=== PATIENT | male | born 1980 | race Caucasian/White ===

== ENCOUNTER 2022-07-17 11:58 | Emergency (ER) | payer SELFPAY ==
[2022-07-17] MEDS ORDERED: TRAMADOL HCL 50 MG TAB ONE (14:57)
--- NOTE | 2022-07-17 15:20 | RAD REPORT ---
EXAM DESCRIPTION: RAD - Ankle Left 3 View -07/17/2022 3:12 pm CLINICAL HISTORY: Left ankle pain FINDINGS: No fracture or dislocation is seen. Soft tissue swelling. Mild osteoarthritis involves the ankle. Very large calcaneal spurs. Prominent spurs dorsal midfoot
--- NOTE | 2022-07-17 15:35 | EDPHYS ---
Physician Documentation [facility] Name: Lenny Toth Age: 41 yrs Sex: Male : 1980 Arrival Date: 07/17/2022 Time: 12:00 Bed Treatment Private MD: ED Physician Enmanuel Monique HPI: 07/17 14:45 This 41 yrs old Male presents to ER via EMS with complaints of Left ankle pain. pm1 14:45 The patient presents with pain, that is acute. The complaints affect the left lateral pm1 ankle and anterior aspect of left ankle. Context: The problem was sustained at home, resulted from the patient falling, the patient is not able to bear weight. Onset: The symptoms/episode began/occurred just prior to arrival. Modifying factors: The symptoms are alleviated by remaining still, the symptoms are aggravated by movement, weight bearing. Associated signs and symptoms: Pertinent positives: swelling, Pertinent negatives calf tenderness. Treatment prior to arrival includes: no previous treatment. Severity of symptoms: in the emergency department the symptoms are unchanged. The patient has not experienced similar symptoms in the past. The patient has not recently seen a physician, has an appointment scheduled, for his chronic back issues. Has a scheduled steroid injection to back with pain management and follow-up with back surgeon. 41-year-old male presents to the ER with complaints of left ankle pain. Patient was getting dressed in his bedroom and reported a fall injury where he felt a pop to his left ankle. Patient reports fall due to history of chronic back pain. 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 This is being managed by pain management and a back surgeon. He has a scheduled steroid injection to his back and follow-up with the back surgeon soon. Patient reports numbness to the lateral aspect of his bilateral lower legs which is chronic. No saddle numbness. Negative for incontinence of stool and urine. Historical: - Allergies: 13:31 Sulfa (Sulfonamide Antibiotics); ss 13:31 Vicodin (Rash); ss - PMHx: 13:31 disc hernation; ss - Immunization history:: Client reports receiving the 2nd dose of the Covid vaccine. - Social history:: Smoking status: Patient denies any tobacco usage or history of. ROS: 14:45 Constitutional: Negative for fever, chills, and weight loss, Cardiovascular: Negative pm1 for chest pain, palpitations, and edema, Respiratory: Negative for shortness of breath, cough, wheezing, and pleuritic chest pain. 14:45 Skin: Negative for injury, rash, and discoloration, Neuro: Negative for headache, weakness, numbness, tingling, and seizure. 14:45 MS/extremity: Positive for pain, swelling, tenderness, of the anterior aspect of left ankle and left lateral ankle, Negative for deformity. 14:45 All other systems are negative. Exam: 14:45 Constitutional: This is a well developed, well nourished patient who is awake, alert, pm1 and in no acute distress. Head/Face: Normocephalic, atraumatic. 14:45 Skin: Warm, dry with normal turgor. Normal color with no rashes, no lesions, and no evidence of cellulitis. 14:45 Eyes: Exam is negative for acute changes. 14:45 ENT: Mouth: no acute changes, Lips: normal, moist, Oral mucosa: normal, pink and intact, moist. 14:45 Cardiovascular: Exam negative for acute changes, Rate: normal, Rhythm: regular, Pulses: no pulse deficits are appreciated. 14:45 Respiratory: Exam negative for acute changes, respiratory distress, shortness of breath. 14:45 Back: pain, Negative for spinal tenderness on palpation, muscle spasm, is not present. 14:45 Musculoskeletal/extremity: Extremities: grossly normal except: noted in the anterior aspect of left ankle and left lateral ankle: swelling, tenderness, There is no evidence of decreased ROM, deformity. 14:45 Neuro: Exam negative for acute changes, Orientation: is normal, Mentation: is normal, Motor: is normal, moves all fours. Vital Signs: 13:31 Pulse 91; Resp 18; Temp 97.9(TE); Pulse Ox 97% ; Weight 158.76 kg; Height 6 ft. 2 in. ss (187.96 cm); Pain 3/10; 13:35 BP 157 / 94; ss 13:31 Body Mass Index 44.94 (158.76 kg, 187.96 cm) ss MDM: 13:10 Patient medically screened. pm1 15:32 Data reviewed: vital signs. Data interpreted: Pulse oximetry: on room air is 97 %. pm1 Interpretation: normal. Counseling: I had a detailed discussion with the patient and/or guardian regarding: the historical points, exam findings, and any diagnostic results supporting the discharge/admit diagnosis, radiology results, the need for outpatient follow up, to return to the emergency department if symptoms worsen or persist or if there are any questions or concerns that arise at home. 07/17 14:44 Order name: Ankle Left 3 View XRAY; Complete Time: 15:32 pm1 07/17 15:36 Order name: Misc. Order: Walker; Complete Time: 16:12 pm1 07/17 15:59 Order name: Walking boot; Complete Time: 16:12 pm1 Administered Medications: 14:50 Drug: traMADol 50 mg Route: PO; aa5 15:50 Follow up: Response: No adverse reaction iw Disposition: 07/18 11:19 Co-signature as Attending Physician, Enmanuel Monique DO I agree with the assessment and ms3 plan of care. Disposition Summary: 07/17/22 15:34 Discharge Ordered Location: Home pm1 Problem: new pm1 Symptoms: have improved pm1 Condition: Stable pm1 Diagnosis - Sprain of ankle pm1 - Fall on same level, unspecified pm1 Followup: pm1 - With: Emergency Department - When: As needed - Reason: Worsening of condition Followup: pm1 - With: Private Physician - When: 2 - 3 days - Reason: Recheck today's complaints, Continuance of care, Re-evaluation by your physician Followup: pm1 - With: Sacha Sampson MD - When: 2 - 3 days - Reason: Recheck today's complaints, Continuance of care, Re-evaluation by your physician Discharge Instructions: - Discharge Summary Sheet pm1 - How to Use a Walker pm1 - Ankle Sprain, [id number] pm1 Forms: - Medication Reconciliation Form pm1 - Thank You Letter pm1 - Antibiotic Education pm1 - Prescription Opioid Use pm1 Prescriptions: - Tramadol 50 mg Oral Tablet - take 1 tablet by ORAL route every 8 hours As needed as needed; 12 tablet; pm1 Refills: 0, Product Selection Permitted Signatures: Dispatcher [employer] Angy Kim RN RN aa5 Amna Kinsey RN RN ss Nish Valenzuela, ELECTRICIAN TELEPHONE ELECTRICIAN TELEPHONE pm1 Enmanuel Monique DO DO ms3 Betsy Turner RN iw
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
[2022-07-17 20:21] VITALS: TEMP 97.9; O2SAT 97
[2022-07-17 20:29] VITALS: BP 157/94
== END 2022-07-17 18:29 | disposition home or self-care (01) ==
LOC: ER 11:58
DX: S93.402A Sprain of unspecified ligament of left ankle, initial encounter (principal); W18.30XA Fall on same level, unspecified, initial encounter; Z88.2 Allergy status to sulfonamides; Z88.5 Allergy status to narcotic agent
CPT/HCPCS: 99284